=== PATIENT | female | born 1985 | race American Indian/Alaskan Native ===

== ENCOUNTER 2017-04-22 11:27 | Emergency (ER) | payer BC ==
[2017-04-22 12:00] LABS: RBC URINE 8 /hpf (0-3); URINE BACTERIA RARE (<OCC); URINE BILIRUBIN NEGATIVE (NEGATIVE); URINE BLOOD 1+ (NEGATIVE); URINE COLOR Yellow (YELLOW); URINE GLUCOSE (UA) NORMAL (Normal); URINE KETONE TRACE mg/dL (NEGATIVE); URINE LEUKOCYTE ESTERASE NEG Leu/uL (Negative); URINE PROTEIN NEGATIVE (NEGATIVE); URINE UROBILINOGEN NORMAL mg/dL (0.2-1.0); WBC URINE 1 /hpf (0-5)
--- NOTE | 2017-04-22 12:00 | C.PDOC ---
History Of Present Illness 32 y/o female c/o 3 days of vaginal spotting, lmp 03/29, with lower abdominal pain, sharp shooting pains in vagina, white vaginal discharge and pain on skin when urine touches and with urination, also urinary frequency. 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 . pt reports hx of genital herpes, takes daily valtrex, denies any current lesions, and doesn't recall last outbreak. pt has unprotected sex with one male partner. no hx gc or chlamydia. denies dyspareunia Time Seen by Provider: 04/22/17 11:53 Chief Complaint (Nursing): Female Genitourinary History Per: Patient History/Exam Limitations: no limitations Onset/Duration Of Symptoms: Days (3) Current Symptoms Are (Timing): Still Present Severity: Mild Quality Of Discomfort: "Pain" Associated Symptoms: Constipation (last bm 2 days ago). denies: Fever, Chills, Nausea, Vomiting, Diarrhea Past Medical History Reviewed: Historical Data, Nursing Documentation, Vital Signs Vital Signs: Last Vital Signs Temp 98.4 F 04/22/17 11:32 Pulse 85 04/22/17 11:32 Resp 18 04/22/17 11:32 BP 108/76 04/22/17 11:32 Pulse Ox 100 04/22/17 13:16 - Medical History Other PMH: ovarian cysts, fibroids, genital herpes. Other Surgeries: TOP Family History: States: Unknown Family Hx - Social History Hx Tobacco Use: No Hx Alcohol Use: Yes Hx Substance Use: No Review Of Systems Constitutional: Negative for: Fever, Chills Cardiovascular: Negative for: Chest Pain Respiratory: Negative for: Cough, Shortness of Breath Gastrointestinal: Positive for: Abdominal Pain (suprapubic), Constipation (last bm 2 days ago). Negative for: Nausea, Vomiting Genitourinary: Positive for: Dysuria, Frequency, Vaginal Discharge, Vaginal Bleeding, Pelvic Pain. Negative for: Rash Skin: Negative for: Rash, Lesions Neurological: Negative for: Weakness, Numbness Physical Exam - Physical Exam Appears: Non-toxic, No Acute Distress Skin: Normal Color, Warm, Dry Head: Atraumatic, Normacephalic Neck: Normal ROM Chest: Symmetrical, No Deformity, No Tenderness Cardiovascular: Rhythm Regular, No Murmur Respiratory: Normal Breath Sounds, No Rales, No Rhonchi, No Wheezing Gastrointestinal/Abdominal: Bowel Sounds, Soft, Tenderness (suprapubic area) Back: No CVA Tenderness Pelvic: Normal External Exam, Vaginal Bleeding, Cervical Motion Tenderness, No Cervix Open, No Adnexal Tenderness Extremity: Normal ROM, No Tenderness, No Pedal Edema Neurological/Psych: Oriented x3, Normal Speech, Normal Cognition ED Course And Treatment O2 Sat by Pulse Oximetry: 100 Medical Decision Making Medical Decision Making: pt with vag bleeding and cmt, and dysiuria; has unrptoected sexl wiull tx for sti, and f/u cultures for urine, genital and gc/chlamdyia and tx if needed. Disposition Counseled Patient/Family Regarding: Diagnosis, Need For Followup - Disposition Disposition: HOME/ ROUTINE Disposition Time: 13:17 Condition: STABLE Additional Instructions: Recommend pelvic rest, nothing in vagina, until rest of results come back. If positive for gonorrhea or chlamydia, your partner needs to be treated as well. Stay well hydrated. Follow up with your director market intelligence in a few days; return to ER for nay worsening symptoms. Instructions: Cervicitis (ED) Forms: [facility] (Malian), General Discharge Instructions - Clinical Impression Clinical Impression: Cervicitis
[2017-04-22] MEDS ORDERED: cefTRIAXone (Rocephin) 250 mg Inj IM STA (12:25)
[2017-04-22 13:23] VITALS: BP 112/80; PULSE 69; RESP 20; TEMP 98.1
[2017-04-27 14:08] VITALS: O2SAT 100
== END 2017-04-22 13:24 | disposition home or self-care (01) ==
LOC: C.ER 11:27
DX: N72 Inflammatory disease of cervix uteri (principal)
CPT/HCPCS: 81001; 84703; 87070; 87086; 87491; 87591; 96372; 99285; J0696

== ENCOUNTER 2017-08-19 11:22 | Emergency (ER) | payer BC ==
[2017-08-19 11:43] VITALS: BP 110/79; PULSE 73; RESP 18; TEMP 98.3; O2SAT 100
--- NOTE | 2017-08-19 11:59 | C.PDOC ---
History Of Present Illness Ligia Giraldo is a 32 year old female, with no past medical history, who presents to the emergency department complaining of intermittent abdominal pain onset x1 week and vaginal pain since last night. She reports pain is mild and to lower abdomen, with no associated symptoms. She states last night during oral intercourse she felt her partner suck and bite her clit and has pain to the area. She denies any dysuria, nausea, vomit, diarrhea, change in appetite, or fever. Additionally patient has history of genital herpes, and is asking for refill of Valtrex, no recent outbreaks. PMD: Dr. Campbell in [place] Time Seen by Provider: 08/19/17 11:40 Chief Complaint (Nursing): Abdominal Pain History Per: Patient History/Exam Limitations: no limitations Onset/Duration Of Symptoms: Days (x1 week) Current Symptoms Are (Timing): Still Present Severity: Mild Radiation Of Pain To:: None Associated Symptoms: denies: Nausea, Vomiting, Diarrhea, Loss Of Appetite Last Bowel Movement: Today (this morning) Last Menstral Period: Aug 12 Past Medical History Reviewed: Historical Data, Nursing Documentation, Vital Signs Vital Signs: Last Vital Signs Temp 98.3 F 08/19/17 11:42 Pulse 73 08/19/17 11:42 Resp 18 08/19/17 11:42 BP 110/79 08/19/17 11:42 Pulse Ox 100 08/19/17 12:43 - Medical History PMH: No Chronic Diseases Surgical History: No Surg Hx Family History: States: Unknown Family Hx - Social History Hx Tobacco Use: No Hx Alcohol Use: Yes Hx Substance Use: No - Immunization History Hx Tetanus Toxoid Vaccination: Yes Hx Influenza Vaccination: No Hx Pneumococcal Vaccination: No Review Of Systems Except As Marked, All Systems Reviewed And Found Negative. Constitutional: Negative for: Fever Gastrointestinal: Positive for: Abdominal Pain. Negative for: Nausea, Vomiting , Diarrhea Genitourinary: Positive for: Other (vaginal pain). Negative for: Dysuria Physical Exam - Physical Exam Appears: Well, No Acute Distress Skin: Normal Color, Warm, Dry Head: Atraumatic, Normacephalic Eye(s): bilateral: Normal Inspection, PERRL, EOMI Neck: Normal, Normal ROM Chest: Symmetrical Cardiovascular: Rhythm Regular, No Murmur Respiratory: Normal Breath Sounds, No Accessory Muscle Use Gastrointestinal/Abdominal: Soft, Tenderness (mild suprapubic), No Distention, No Guarding Pelvic: No Normal External Exam (irritation and erythema to the labia and clitoris. No discharge no odor noted. ), No Cervical Motion Tenderness, Other ( scant dark brown blood) Extremity: Normal ROM, No Deformity, No Swelling Neurological/Psych: Oriented x3, Normal Speech Gait: Steady ED Course And Treatment O2 Sat by Pulse Oximetry: 100 (RA) Pulse Ox Interpretation: Normal Medical Decision Making Medical Decision Making: Initial Impression: Vaginal pain Initial Plan: --Chlamydia/GC RNA, TMA --Urine culture --Urinalysis Patient has vaginal irritation. no abrasions or lacerations. No herpes outbreak. No discharge. She denies any possible STI exposure. Will not treat at this time and contact with results. Disposition Counseled Patient/Family Regarding: Diagnosis, Need For Followup, Rx Given - Disposition [facility] Disposition: HOME/ ROUTINE Disposition Time: 12:36 Condition: GOOD Additional Instructions: Recommend pelvic rest, nothing in vagina, until rest of results come back. Follow up with your skiver uppers or linings in a few days, return to ER for any worsening symptoms. Prescriptions: valACYclovir [Valtrex] 500 mg PO BID #20 tab Instructions: Cervicitis (ED) Forms: [facility] (Azeri) - POA Present On Arrival: None - Clinical Impression Clinical Impression: Vaginal irritation - PA / [employer] / Resident Statement MD/DO has reviewed & agrees with the documentation as recorded. - Scribe Statement Documented by Jonatan Kimbrough acting as a scribe for GRANT Owens All medical record entries made by the Scribe were at my direction and personally dictated by me. I have reviewed the chart and agree that the record accurately reflects my personal performance of the history, physical exam, medical decision making, and the department course for this patient. I have also personally directed, reviewed, and agree with the discharge instructions and disposition.
[2017-08-19 12:29] LABS: RBC URINE 1 /hpf (0-3); URINE BILIRUBIN NEGATIVE (NEGATIVE); URINE BLOOD NEGATIVE (NEGATIVE); URINE COLOR Yellow (YELLOW); URINE GLUCOSE (UA) NORMAL (Normal); URINE KETONE NEGATIVE (NEGATIVE); URINE LEUKOCYTE ESTERASE NEG Leu/uL (Negative); URINE PROTEIN NEGATIVE (NEGATIVE); URINE UROBILINOGEN NORMAL mg/dL (0.2-1.0); WBC URINE < 1 /hpf (0-5)
== END 2017-08-19 12:47 | disposition home or self-care (01) ==
LOC: C.ER 11:22
DX: N89.8 Other specified noninflammatory disorders of vagina (principal)

== ENCOUNTER 2018-02-10 15:16 | Emergency (ER) | payer BC ==
[2018-02-10 15:29] VITALS: BP 102/77; PULSE 86; RESP 17; TEMP 98.9; O2SAT 100
[2018-02-10] MEDS ORDERED: Bacitracin 500 Units/gm Oint Foilpak UD TOP ONE (16:03)
[2018-02-10] MEDS ORDERED: Bacitracin 500 Units/gm Oint Foilpak UD ONE ×2 (16:04→16:06)
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
== END 2018-02-10 16:24 | disposition home or self-care (01) ==
LOC: C.ER 15:16
DX: S00.432A Contusion of left ear, initial encounter (principal); W50.0XXA Accidental hit or strike by another person, initial encounter